=== PATIENT | female | born 1955 | race Caucasian/White ===

== ENCOUNTER 2018-02-10 23:01 | Emergency (ER) | payer OTHER ==
[2018-02-10] MEDS ORDERED: NITROGLYCERIN 0.4 MG TAB SL PRN (23:17)
[2018-02-10] MEDS ORDERED: NITROGLYCERIN 0.4 MG TAB SL ONE (23:23)
[2018-02-10] MEDS ORDERED: ASPIRIN 81 MG CHEWABLE CTB ONE (23:23)
[2018-02-10] MEDS ORDERED: ASPIRIN 325 MG TAB PO SCH (23:30)
[2018-02-10 23:34] LABS: BASOPHILS % (AUTO) 1 % (0-3); EOSINOPHILS % (AUTO) 3 % (0-9); HEMATOCRIT 33 % (35-47); HEMOGLOBIN 10.9 gm/dl (12.0-15.5); LYMPHOCYTES % (AUTO) 42.5 % (10-50); MEAN CORPUSCULAR HEMOGLOBIN 30.8 pg (27.0-32.0); MEAN CORPUSCULAR HGB CONC 32.9 gm/dl (32.0-36.0); MEAN CORPUSCULAR VOLUME 94 fL (81-99); MONOCYTES % (AUTO) 9.2 % (0-12); NEUTROPHILS % (AUTO) 44.5 % (37-80)
[2018-02-10 23:37] VITALS: BP 171/93; PULSE 94; RESP 20; TEMP 97.8; O2SAT 100
[2018-02-10 23:54] LABS: BLOOD UREA NITROGEN 13 mg/dl (7-18); CALCIUM 8.3 mg/dl (8.5-10.1); CARBON DIOXIDE 26.4 mEq/L (21-32); CHLORIDE 103 mMol/L (98-107); CREATININE 0.88 mg/dl (0.60-1.00); GLUCOSE 260 mg/dl (74-106); POTASSIUM 3.8 mMol/L (3.5-5.1); SODIUM 138 mMol/L (136-145); TROP I < 0.017 ng/ml (0.000-0.056)
== END 2018-02-11 00:35 | disposition home or self-care (01) | DRG 313 ==
LOC: ED 23:01
DX: R07.9 Chest pain, unspecified (principal)
CPT/HCPCS: 36415; 71045; 80048; 84484; 85025; 93005; 99283; 99284; A9270-GY

== ENCOUNTER 2018-09-06 07:26 | Day surgery (SDC) | payer OTHER ==
[2018-09-06] MEDS ORDERED: PROPOFOL 500 MG/50 ML EMU IV ONE (07:47)
[2018-09-06] MEDS ORDERED: LIDOCAINE HCL 1% MPF 30 SOL ONE (07:47)
[2018-09-06 09:15] VITALS: TEMP 98.2
[2018-09-06 09:31] VITALS: RESP 20; O2SAT 100
[2018-09-06 09:38] VITALS: BP 126/70; PULSE 72
== END 2018-09-06 09:46 | disposition home or self-care (01) | DRG 313 ==
LOC: SURG 07:26
PROVIDERS: ATTEND Internal Medicine Gastroenterology
DX: R07.9 Chest pain, unspecified (principal); E11.9 Type 2 diabetes mellitus without complications; Z79.1 Long term (current) use of non-steroidal anti-inflammatories (NSAID); K44.9 Diaphragmatic hernia without obstruction or gangrene; L53.8 Other specified erythematous conditions; K29.70 Gastritis, unspecified, without bleeding
CPT/HCPCS: 82962; 99001; J2001; J2704